=== PATIENT | female | born 1940 | race Caucasian/White ===

== ENCOUNTER 2019-10-09 09:15 | Day surgery (SDC) | payer MEDICARE, BC ==
[2019-10-08 11:33] LABS: BASOPHILS 0.4 % (0-2); EOSINOPHILS 2.2 % (0-7); HEMATOCRIT 39.6 % (36.0-48.0); HEMOGLOBIN 12.7 g/dL (12-16); IMMATURE GRANULOCYTES 0.2 % (0-5); MCH 28.9 pg (26.0-34.0); MCHC 32.1 g/dL (31.0-37.0); MEAN PLATELET VOLUME 8.8 fL (7.4-10.4); MONOCYTES 8.2 % (2-11); PLATELET COUNT 241 10x3/uL (130-400); RDW 13.2 % (11.5-14.5); WBC 5.4 10x3/uL (4.8-10.8)
[2019-10-08 11:44] LABS: INR 0.95 (0.85-1.17); PROTIME 12.2 SECONDS (11.6-15.0)
[2019-10-08 11:45] LABS: APTT 29.6 SECONDS (22.8-39.4); CALC OSMOLALITY 275 mosm/kg (275-300); CALCIUM 9.8 mg/dL (8.5-10.1); CARBON DIOXIDE 29.1 mmol/L (21.0-32.0); CHLORIDE - SERUM 104 mmol/L (98-107); CREATININE - SERUM 0.6 mg/dL (0.6-1.3); GLUCOSE 77 mg/dL (74-106); POTASSIUM - SERUM 4.6 mmol/L (3.5-5.1); SODIUM 139 mmol/L (136-145); UREA NITROGEN 9 mg/dL (7-18); eGFR NON AFRICAN AMERICAN > 90 mL/min (90-120)
[~2019-10-09] VITALS: Ht 170.2 cm; Wt 86.2 kg
[~2019-10-09 09:15] MED LIST: GLIMEPIRIDE1 MG PO; GLUCOPHAGE1000 MG PO; IBUPROFEN400 MG PO; LIPITOR40 MG PO; LISINOPRIL10 MG PO; NOVOLIN N INJ; TRICOR48 MG PO
[2019-10-09 10:15] VITALS: BP 144/76; Ht 170.2 cm; Wt 86.2 kg
[2019-10-09] MEDS ORDERED: HYDROCODON-ACE1 EA10 PO (16:17)
--- NOTE | 2019-10-09 20:04 | NUR ---
1900 IV REMOVED AND DISCHARGE INSTRUCTIONS GIVEN AND RX. PT HAS CRUTCHES AT HOME AND COMFORTABLE USING THEM
--- NOTE | 2019-10-10 20:50 | OP ---
PATIENT NAME: BIPIN TADEO MEDICAL RECORD: [id number] :42 LOCATION:[facility] ADMISSION DATE: SURGEON: MATTHEW DOUGLAS DO DATE OF OPERATION: 10/09/2019 PROCEDURE PERFORMED: Right knee arthroscopy with abrasion chondroplasty of the right medial femoral condyle and patella and a partial lateral meniscectomy. PREOPERATIVE DIAGNOSES: Right knee chondromalacia and meniscal tear. POSTOPERATIVE DIAGNOSES: Right knee chondromalacia and meniscal tear. 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 INDICATIONS: Ms. Tadeo is a 79-year-old female who had an MRI and swelling of the right knee, which showed a meniscal tear as well as some mild chondromalacia. I informed her due to her age and due to the chondromalacia she may not be the end-all for her knee pain. She said that she had not had any pain prior to this and it came out of nowhere. I informed her that we would do what we could but she may need a knee replacement some time. She is okay with that and is aware of the risks including infection, bleeding, continued knee pain, loss of motion, need for further surgery, blood clots, and even and she signed the consent. SURGEON: Matthew Douglas DO CONE WORKER: Rufus Sanches, certified surgical porcelain buildup assistant. He assisted with leg holding as well as closing the wounds. DESCRIPTION OF THE PROCEDURE: The patient was taken to the operative suite, given 2 grams of Ancef laid in supine position. The right lower extremity was prepped and draped in sterile fashion after she was sedated and an LMA was placed. The timeout was performed, everyone was in agreement with correct side, site, patient and procedure and then began by starting with a lateral portal with an 11-blade scalpel and the trocar entered into the knee. I then inspected the knee. The grade IV chondromalacia was seen in the patella. There were no loose bodies in the lateral and medial gutters. The knee was then brought from extension to flexion and into the medial compartment. The medial portal was then established with an 18-guage spinal needle and 11-blade scalpel. Probe was brought in. The grade IV chondromalacia was noted in the medial femoral condyle. The leg then had a valgus stress, put on it and opening up the medial joint and the medial meniscus was probed. There were no tears seen in the medial meniscus, but there was severe chondromalacia grade IV. The ACL was then probed and seen to be in good position. The knee was then [id number] and the lateral compartment was entered. The inner portion of the middle third of the lateral meniscus was torn. This was chewed out with a biter and a shaver back to a stable position. There was no chondromalacia seen on the lateral aspect of the knee. The knee was then brought to extension and the shaver was used to do the abrasion chondroplasty of the patella. This was also performed on the medial femoral condyle. The water was turned off and suction was turned on. The portal sites were closed with 4-0 Monocryl in inverted interrupted fashion and Steri-Strips placed over them. Adaptic, 4 x 4s, ABD, Webril, Tyler wrap were placed on it and a UCHE hose stocking up to the knee. She was then awakened and taken to recovery in stable condition. OPERATIVE REPORT [id number] BIPIN TADEO BLOOD LOSS: Minimal. COMPLICATION: None. TRANSINT:[id number] Voice Confirmation ID: [id number] DOCUMENT ID: [id number] MATTHEW DOUGLAS DO at 2050 CC: [id number] DICTATION DATE: 10/09/19 162 [employer]ER: 10/09/19 [id number] [facility] 10/09/19 [facility] [address] [place] [address]
== END 2019-10-09 19:30 | disposition home or self-care (01) ==
LOC: D.OPS 09:15 → D.PAN 10:15 → D.OPS 10:15 → D.PAN 11:40 → D.OPS 12:30 → D.PAN 12:30 → D.OPS 14:00
PROVIDERS: Anesthesiology; ATTEND Orthopaedic Surgery
DX: M94.261 Chondromalacia, right knee (principal); M25.561 Pain in right knee; S83.241D Other tear of medial meniscus, current injury, right knee, subsequent encounter; X58.XXXD Exposure to other specified factors, subsequent encounter